=== PATIENT | female | born 1965 | race Caucasian/White ===

== ENCOUNTER 2019-11-19 08:30 | Emergency (ER) | payer OTHER ==
[~2019-11-19] VITALS: Ht 160 cm; Wt 63.5 kg
[~2019-11-19 08:30] MED LIST: ZOFRAN ODT4 MG PO
[2019-11-19 08:38] VITALS: BP 149/88
[2019-11-19] MEDS ORDERED: NORVASC 2.5 MG2.5 M1 PO (08:48)
[2019-11-19] MEDS ORDERED: LISINOPRIL2.5 MG PO (08:48)
[2019-11-19] MEDS ORDERED: MEDROLDOSEPACK PO (09:34)
[2019-11-19] MEDS ORDERED: NAPROSYN500 MG PO (09:34)
[2019-11-19] MEDS ORDERED: ULTRAM 50MG TAB50 MG PO (09:34)
[2019-11-19 09:59] VITALS: BP 129/72
--- NOTE | 2019-11-19 10:06 | EKG ---
[facility] [place] [address] ELECTROCARDIOGRAM REPORT Name: SANJUANITA MACARIO Room #: 170-9 ADM IN M.R.#: [id number] Admission: 11/19/19 Attend Phys: Hilton Gonzales MD Discharge: Date of : 69 Report #: [id number] THIS REPORT FOR: cc: Scarlet Cameron MD Mcrae, Jennifer A, MD Couchonnal, Luis F. MD ~ THIS REPORT FOR: //name// [facility] ED Test Date: 2019-11-19 Test Time: 08:40:40 Pat Name: SANJUANITA MACARIO Department: Room: 170 Gender: F Chemistry Technician: REGINE : 1965 Requested By: Markus Crouch Order Number: [id number] MD: Yefri Matos Measurements Intervals [place] Rate: 75 P: 54 NE: 140 QRS: 23 QRSD: 98 T: 24 QT: 367 QTc: 410 Interpretive Statements Sinus rhythm Minimal ST depression, anterolateral leads No previous ECG available for comparison Electronically Signed On 11-19-2019 10:05:16 CDT by Yefri Matos [email or web address] <ELECTRONICALLY SIGNED> By: Yefri Matos MD 11/19/19 1005 9 9 Yefri Matos MD /EPI
== END 2019-11-19 10:00 | disposition home or self-care (01) ==
LOC: ER 08:30 → EROBS 09:56 → ER 09:56
DX: M75.31 Calcific tendinitis of right shoulder (principal); I10 Essential (primary) hypertension; Z88.0 Allergy status to penicillin; F17.210 Nicotine dependence, cigarettes, uncomplicated; Z98.890 Other specified postprocedural states; Z79.899 Other long term (current) drug therapy

== ENCOUNTER 2020-04-17 19:51 | Emergency (ER) | payer OTHER ==
[~2020-04-17] VITALS: Ht 160 cm; Wt 63.0 kg
[~2020-04-17 19:51] MED LIST changes: +LISINOPRIL2.5 MG PO; +MEDROLDOSEPACK PO; +NAPROSYN500 MG PO; +NORVASC 2.5 MG2.5 M1 PO; +ULTRAM 50MG TAB50 MG PO
[2020-04-17] MEDS ORDERED: MIRTAZAPINE15 M2 PO (19:59)
[2020-04-17] MEDS ORDERED: ACYCLOVIR SODI500 MG PO (20:00)
[2020-04-17 20:37] LABS: ABSOLUTE NEUTROPHILS 9.2 thou/uL (1.4-8.2); BASOPHILS 0.5 % (0.0-2.0); EOSINOPHILS 1.6 % (0.0-3.0); HEMATOCRIT 47.5 % (37.0-47.0); HEMOGLOBIN 15.8 gm/dL (12.0-15.0); LYMPHOCYTES 26.3 % (24.0-44.0); MCH 32.9 pg (26.0-34.0); MCHC 33.4 g/dL (28.0-37.0); MCV 98.5 fL (80.0-100.0); PLATELET COUNT 290 thou/uL (150-400); POLYS 61.6 % (36.0-66.0); RBC 4.82 mil/uL (4.20-5.00); RDW 14.2 % (10.5-14.5); WBC 14.9 thou/uL (4.0-11.0)
[2020-04-17 20:40] LABS: ANION GAP 12 mmol/L (7-16); BUN 15 mg/dL (7-18); CALCIUM 9.6 mg/dL (8.5-10.1); CHLORIDE 102 mmol/L (98-107); CO2 25 mmol/L (21-32); CREATININE 0.8 mg/dL (0.6-1.0); GLUCOSE 126 mg/dL (74-106); POTASSIUM 3.8 mmol/L (3.5-5.1); SODIUM 139 mmol/L (136-145)
[2020-04-17 20:46] LABS: ALBUMIN 3.7 g/dL (3.4-5.0); DIRECT BILIRUBIN < 0.1 mg/dL (<0.1-0.2); SGOT 24 U/L (15-37); SGPT 35 U/L (30-65); TOTAL BILIRUBIN 0.3 mg/dL (0.2-1.0); TOTAL PROTEIN 7.2 g/dL (6.4-8.2)
[2020-04-17 22:18] LABS: URINE BILIRUBIN NEGATIVE (Negative); URINE BLOOD TRACE (Negative); URINE CLARITY CLEAR; URINE COLOR YELLOW; URINE GLUCOSE-RANDOM* NEGATIVE (Negative); URINE KETONES NEGATIVE (Negative); URINE LEUKOCYTES-REFLEX NEGATIVE (Negative); URINE NITRITE-REFLEX NEGATIVE (Negative); URINE PROTEIN (DIPSTICK) TRACE (Negative); URINE SPECIFIC GRAVITY <= 1.005 (1.005-1.035); URINE UROBILINOGEN 0.2 E.U./dl (0.2-1.0)
[2020-04-18] MEDS ORDERED: BENTYL 20 MG TA20 M1 PO (00:02)
[2020-04-18] MEDS ORDERED: CARAFATE 1 GM TA1 G1 PO (00:02)
[2020-04-18] MEDS ORDERED: TRIMETHOPRIM /P10 M1 OPHTHALMIC (00:07)
[2020-04-18 00:10] VITALS: BP 108/60
--- NOTE | 2020-04-18 08:18 | EKG ---
[facility] [place] [address] ELECTROCARDIOGRAM REPORT Name: SANJUANITA MACARIO Room #: DEP [facility]#: [id number] Admission: 04/17/20 Attend Phys: Discharge: 04/18/20 Date of : 69 Report #: [id number] THIS REPORT FOR: cc: Scarlet Cameron MD Mcrae, Jennifer A, MD Couchonnal, Luis F. MD ~ THIS REPORT FOR: //name// [facility] ED Test Date: 2020-04-17 Test Time: 22:45:51 Pat Name: SANJUANITA MACARIO Department: Room: Gender: F Bell Ringer: MATHIEU : 1965 Requested By: Beverly Wheeler Order Number: [id number] MD: Yefri Matos Measurements Intervals [place] Rate: 72 P: 46 OR: 143 QRS: 41 QRSD: 98 T: 54 QT: 402 QTc: 440 Interpretive Statements Sinus rhythm Borderline T abnormalities, anterior leads Baseline wander in lead(s) V4 Compared to ECG 11/19/2019 08:40:40 T-wave abnormality now present ST (T wave) deviation no longer present Electronically Signed On 04-18-2020 8:18:34 CDT by Yefri Matos [email or web address] <ELECTRONICALLY SIGNED> By: Yefri Matos MD 04/18/20817 44 44 Yefri Matos MD /EPI
== END 2020-04-18 00:17 | disposition home or self-care (01) ==
LOC: ER 19:51
PROVIDERS: Emergency Medicine
DX: R10.13 Epigastric pain (principal); R10.11 Right upper quadrant pain; R19.7 Diarrhea, unspecified; F17.210 Nicotine dependence, cigarettes, uncomplicated; Z98.890 Other specified postprocedural states; Z79.899 Other long term (current) drug therapy; Z88.0 Allergy status to penicillin